=== PATIENT | male | born 1935 | race Caucasian/White ===

== ENCOUNTER 2017-10-23 07:21 | Day surgery (SDC) | payer MEDICARE, OTHER ==
[2017-10-23] MEDS ORDERED: ACETAZOLAMIDE 250 MG PO ONE (07:43)
[2017-10-23] MEDS: PROPARACAINE HCL 0.5% OPHTHALMIC SOL ONE ×3 (08:00→09:30)
[2017-10-23] MEDS: PHENYLEPHRINE HCL 10% OPHTHAL SOL ONE ×2 (08:01→08:21)
[2017-10-23] MEDS: CYCLOPENTOLATE 1% SOL ONE ×2 (08:02→08:22)
[2017-10-23] MEDS: KETOROLAC 0.5% OPTH 60 DROP SOL ONE ×2 (08:03→08:22)
[2017-10-23] MEDS ORDERED: FENTANYL 100MCG/2ML SOL ONE (09:04)
[2017-10-23] MEDS ORDERED: MIDAZOLAM 2 MG/2 ML SOL ONE (09:05)
[2017-10-23] MEDS ORDERED: LIDOCAINE HCL 1% MPF SOL ONE (09:26)
[2017-10-23] MEDS ORDERED: POVIDONE IODINE 5% SOL ONE (09:26)
[2017-10-23] MEDS ORDERED: BSS 500 ML 500 ML IR ONE (09:26)
[2017-10-23 10:09] VITALS: BP 129/75; PULSE 64; RESP 20; TEMP 96.9; O2SAT 98
== END 2017-10-23 10:25 | disposition home or self-care (01) | DRG 125 ==
LOC: SURG 07:21
PROVIDERS: ATTEND Ophthalmology
DX: H25.9 Unspecified age-related cataract (principal)
CPT/HCPCS: J2250; J3010; A9270-GY; J2001

== ENCOUNTER 2017-11-20 06:00 | Day surgery (SDC) | payer MEDICARE, OTHER ==
[~2017-11-20 06:00] MED LIST: ACETAZOLAMIDE 250 MG PO ONE
[2017-11-20] MEDS: PROPARACAINE HCL 0.5% OPHTHALMIC SOL ONE ×3 (06:19→07:32)
[2017-11-20] MEDS: KETOROLAC 0.5% OPTH 60 DROP SOL ONE ×2 (06:19→06:37)
[2017-11-20] MEDS: CYCLOPENTOLATE 1% SOL ONE ×2 (06:19→06:36)
[2017-11-20] MEDS: PHENYLEPHRINE HCL 10% OPHTHAL SOL ONE ×2 (06:19→06:37)
[2017-11-20] MEDS ORDERED: MIDAZOLAM 2 MG/2 ML SOL ONE (06:41)
[2017-11-20] MEDS ORDERED: POVIDONE IODINE 5% SOL ONE (06:42)
[2017-11-20] MEDS ORDERED: BSS 500 ML 500 ML IR ONE (06:42)
[2017-11-20] MEDS ORDERED: LIDOCAINE HCL 1% MPF SOL ONE (06:42)
[2017-11-20 08:08] VITALS: BP 136/89; PULSE 66; RESP 20; TEMP 98.4; O2SAT 97
== END 2017-11-20 08:20 | disposition home or self-care (01) | DRG 125 ==
LOC: SURG 06:00
PROVIDERS: ATTEND Ophthalmology
DX: H25.9 Unspecified age-related cataract (principal)
CPT/HCPCS: J2250; A9270-GY; J2001

== ENCOUNTER 2018-11-11 07:18 | Day surgery (SDC) | payer MEDICARE, OTHER ==
[2018-11-11] MEDS ORDERED: LIDOCAINE HCL 1% MPF 30 SOL ONE (08:30)
[2018-11-11] MEDS ORDERED: BUPIVACAINE HCL 0.5% MPF 10 ML SOL ONE (08:30)
[2018-11-11 09:06] VITALS: BP 129/77; PULSE 60; RESP 18; TEMP 98.1; O2SAT 98
== END 2018-11-11 09:45 | disposition home or self-care (01) | DRG 554 ==
LOC: SURG 07:18
PROVIDERS: ATTEND Nurse Anesthetist, Certified Registered
DX: M12.88 Other specific arthropathies, not elsewhere classified, other specified site (principal)
CPT/HCPCS: J2001

== ENCOUNTER 2018-11-17 07:21 | Day surgery (SDC) | payer MEDICARE, OTHER ==
[2018-11-17] MEDS ORDERED: LIDOCAINE HCL 1% MPF 30 SOL ONE (08:13)
[2018-11-17] MEDS ORDERED: LIDOCAINE HCL 2% MPF 10 ML SOL ONE (08:13)
[2018-11-17 08:59] VITALS: BP 132/69; PULSE 66; RESP 12; TEMP 98; O2SAT 97
== END 2018-11-17 09:15 | disposition home or self-care (01) | DRG 554 ==
LOC: SURG 07:21
PROVIDERS: ATTEND Nurse Anesthetist, Certified Registered
DX: M12.88 Other specific arthropathies, not elsewhere classified, other specified site (principal)
CPT/HCPCS: J2001

== ENCOUNTER 2018-11-24 11:08 | Emergency (ER) | payer MEDICARE, OTHER ==
[2018-11-24 11:30] VITALS: BP 138/73; PULSE 75; RESP 18; TEMP 97.6; O2SAT 98
[2018-11-24] MEDS ORDERED: PREDNISONE 20 MG TAB PO ONE (11:52)
[2018-11-24] MEDS ORDERED: APAP/HYDROCODONE 1 EACH TABLET PO ONE (11:52)
[2018-11-24] MEDS ORDERED: APAP/HYDROCODONE 1 EACH TABLET ONE (11:53)
[2018-11-24] MEDS ORDERED: PREDNISONE 20 MG TAB ONE (11:54)
== END 2018-11-24 12:00 | disposition home or self-care (01) | DRG 552 ==
LOC: ED 11:08
DX: M54.5 Low back pain (principal)
CPT/HCPCS: 99282; A9270-GY

== ENCOUNTER 2018-12-06 18:30 | Emergency (ER) | payer MEDICARE, OTHER ==
[2018-12-06 18:43] VITALS: RESP 18; TEMP 97.9
[2018-12-06] MEDS ORDERED: TDAP VACCINE 0.5 ML SUS IM ONE (19:39)
[2018-12-06] MEDS ORDERED: KETOROLAC TROMETHAMINE 30 MG/ML SOL IM ONE (19:58)
[2018-12-06] MEDS ORDERED: CYCLOBENZAPRINE 10 MG TAB PO ONE (19:59)
[2018-12-06] MEDS ORDERED: KETOROLAC TROMETHAMINE 30 MG/ML SOL ONE (20:01)
[2018-12-06] MEDS ORDERED: CYCLOBENZAPRINE 10 MG TAB ONE (20:02)
[2018-12-06 22:53] VITALS: BP 128/78; PULSE 76; O2SAT 98
== END 2018-12-06 22:20 | disposition home or self-care (01) | DRG 544 ==
LOC: ED 18:30
DX: M48.56XA Collapsed vertebra, not elsewhere classified, lumbar region, initial encounter for fracture (principal)
CPT/HCPCS: 72120; 90715; 96372; 99283; J1885; A9270-GY

== ENCOUNTER 2018-12-15 10:37 | Emergency (ER) | payer MEDICARE, OTHER ==
[2018-12-15 10:47] VITALS: RESP 22; TEMP 98.5
[2018-12-15] MEDS ORDERED: IBUPROFEN 400 MG TAB PO ONE (11:59)
[2018-12-15] MEDS ORDERED: IBUPROFEN 400 MG TAB ONE (12:02)
[2018-12-15 12:24] VITALS: BP 132/78; PULSE 62; O2SAT 98
== END 2018-12-15 12:26 | disposition home or self-care (01) | DRG 552 ==
LOC: ED 10:37
DX: M54.5 Low back pain (principal); G89.29 Other chronic pain
CPT/HCPCS: 99282; A9270-GY

== ENCOUNTER 2018-12-21 07:35 | Day surgery (SDC) | payer MEDICARE, OTHER ==
[2018-12-21] MEDS ORDERED: FENTANYL 100MCG/2ML SOL ONE (08:11)
[2018-12-21] MEDS ORDERED: MIDAZOLAM 2 MG/2 ML SOL ONE (08:11)
[2018-12-21] MEDS ORDERED: SODIUM CHLORIDE 0.9% FLUSH 10 ML SOL IV ONE (08:26)
[2018-12-21] MEDS ORDERED: LIDOCAINE HCL 1% MPF 30 SOL ONE (08:37)
[2018-12-21] MEDS ORDERED: TRIAMCINOLONE ACETONIDE 40 MG/ML SUS ONE (08:37)
[2018-12-21] MEDS ORDERED: LIDOCAINE HCL 2% MPF 10 ML SOL ONE (08:37)
[2018-12-21] MEDS ORDERED: BUPIVACAINE HCL 0.25% MPF 30 ML SOL INFIL ONE (08:37)
[2018-12-21 09:07] VITALS: RESP 16
[2018-12-21 09:56] VITALS: BP 132/84; PULSE 67; TEMP 97.9; O2SAT 98
== END 2018-12-21 10:00 | disposition home or self-care (01) | DRG 554 ==
LOC: SURG 07:35
PROVIDERS: ATTEND Nurse Anesthetist, Certified Registered
DX: M12.88 Other specific arthropathies, not elsewhere classified, other specified site (principal)
CPT/HCPCS: J2250; J3010; J2001; J3300

== ENCOUNTER 2019-01-14 10:00 | Emergency (ER) | payer MEDICARE, OTHER ==
[2019-01-14 10:00] VITALS: O2SAT 98
[2019-01-14 10:41] VITALS: RESP 20; TEMP 97.4
[2019-01-14] MEDS ORDERED: APAP/HYDROCODONE 1 EACH TABLET PO ONE (10:55)
[2019-01-14] MEDS ORDERED: APAP/HYDROCODONE 1 EACH TABLET ONE (11:13)
[2019-01-14 13:11] VITALS: BP 125/64; PULSE 64
[2019-01-14] MEDS ORDERED: SOLUMEDROL 125 MG/2 ML 125 MG/2 ML PDS IM ONE (13:11)
[2019-01-14] MEDS ORDERED: SOLUMEDROL 125 MG/2 ML 125 MG/2 ML PDS ONE (13:17)
== END 2019-01-14 13:39 | disposition home or self-care (01) | DRG 561 ==
LOC: ED 10:00
DX: M48.56XG Collapsed vertebra, not elsewhere classified, lumbar region, subsequent encounter for fracture with delayed healing (principal)
CPT/HCPCS: 70030; 72148; 96372; 99283; J2930; A9270-GY

== ENCOUNTER 2019-02-16 08:24 | Day surgery (SDC) | payer MEDICARE, OTHER ==
[2019-02-16] MEDS ORDERED: BUPIVACAINE HCL 0.25% MPF 30 ML SOL INFIL ONE (09:09)
[2019-02-16] MEDS: DEXAMETHASONE SOD PHOS PF 10 MG/ML SOL IJ ONE ×3 (09:23→09:40)
[2019-02-16 09:44] VITALS: PULSE 71
[2019-02-16 09:49] VITALS: BP 116/76; RESP 16; TEMP 98.5; O2SAT 96
== END 2019-02-16 10:10 | disposition home or self-care (01) | DRG 552 ==
LOC: SURG 08:24
PROVIDERS: ATTEND Nurse Anesthetist, Certified Registered
DX: M99.53 Intervertebral disc stenosis of neural canal of lumbar region (principal)
CPT/HCPCS: J1100

== ENCOUNTER 2019-05-05 10:06 | Day surgery (SDC) | payer MEDICARE, OTHER ==
[~2019-05-05 10:06] MED LIST changes: -ACETAZOLAMIDE 250 MG PO ONE; +PROPOFOL 500 MG/50 ML EMU IV ONE
[2019-05-05 13:01] VITALS: BP 138/86; PULSE 69; RESP 20; TEMP 97.2; O2SAT 96
== END 2019-05-05 14:15 | disposition home or self-care (01) | DRG 392 ==
LOC: SURG 10:06
PROVIDERS: ATTEND Surgery
DX: R93.3 Abnormal findings on diagnostic imaging of other parts of digestive tract (principal); K57.32 Diverticulitis of large intestine without perforation or abscess without bleeding; K56.699 Other intestinal obstruction unspecified as to partial versus complete obstruction; R60.9 Edema, unspecified; K63.89 Other specified diseases of intestine
CPT/HCPCS: J2704